=== PATIENT | male | born 1945 | race Caucasian/White ===

== ENCOUNTER → 2019-12-21 | Outpatient (CLI) | payer OTHER ==
[~2019-12-21] MED LIST: REGADENOSON 0.4 MG/5 ML PF SYG IVP ONE; REGADENOSON 0.4 MG/5 ML PF SYG IVP SCH
== END | disposition home or self-care (01) ==
LOC: SHCH 08:13
PROVIDERS: ATTEND Internal Medicine Cardiovascular Disease
DX: I25.10 Atherosclerotic heart disease of native coronary artery without angina pectoris (principal)
CPT/HCPCS: 78452; 93017; 96374; A9500 ×2; J2785

== ENCOUNTER 2023-02-22 06:19 | Day surgery (SDC) | payer OTHER ==
[2023-02-17 13:35] LABS: EOSINOPHILS % (AUTO) 5.5 % (0.0-8.0); HEMATOCRIT 45.2 % (42-54); LYMPHOCYTES % (AUTO) 17.8 % (21.0-51.0); MEAN CORPUSCULAR HEMOGLOBIN 31.9 pg (27.0-33.0); MEAN CORPUSCULAR HGB CONC 33.2 g/dL (32.0-36.0); MEAN CORPUSCULAR VOLUME 96.2 fL (79-99); MONOCYTES % (AUTO) 8.4 % (3.0-13.0); NEUTROPHILS % (AUTO) 67.1 % (40.0-77.0); PLATELET COUNT (AUTO) 323 K/uL (130-400); RED CELL DISTRIBUTION WIDTH 12.9 % (11.0-15.5); WHITE BLOOD COUNT (AUTO) 8.2 K/uL (4.8-10.8)
[2023-02-17 13:40] VITALS: BP 134/62; PULSE 66; RESP 16
[2023-02-17 13:41] LABS: CREATININE 0.8 mg/dL (0.5-1.5); POTASSIUM 4.4 mmol/L (3.5-5.1)
[2023-02-22] VITALS (18 sets, daily range): BP systolic 100–133; BP diastolic 53–70; PULSE 59–77; RESP 15–20
[~2023-02-22] VITALS: Ht 172.7 cm; Wt 80.1 kg
[~2023-02-22 06:19] MED LIST changes: +ATOR-2 PO; +LOSA50TA64 PO; +METO-408 PO; -REGADENOSON 0.4 MG/5 ML PF SYG IVP ONE; -REGADENOSON 0.4 MG/5 ML PF SYG IVP SCH; +ROPIVICAINE 250MG+KETOROLAC 15MG+EPINEPHRINE 0.3+CLONIDINE 80 IV PRN; +TAMS-1 PO; +TRANEXAMIC ACID 1,000 MG in 0.9%NACL 100ML 100 ML IV ONE; +VANCOMYCIN 1G VIAL TP ONE
[2023-02-22] MEDS ORDERED: LACTATED RINGERS 1000ML 1,000 ML IV ONE (06:27)
[2023-02-22] MEDS ORDERED: FENTANYL CITRATE PF 50 MCG/1 ML 2ML VIAL ONE (07:20)
[2023-02-22] MEDS ORDERED: MIDAZOLAM HCL 1 MG/ML 2ML VIAL ONE (07:20)
[2023-02-22] MEDS ORDERED: SUCCINYLCHOLINE CHLORIDE 20 MG/ML 10 ML VIAL ONE (07:20)
[2023-02-22] MEDS ORDERED: ROCURONIUM 10MG/1ML SYR 10 MG/ML ML ONE (07:20)
[2023-02-22] MEDS ORDERED: PROPOFOL 10 MG/ML 20ML VIAL IV ONE (07:20)
[2023-02-22] MEDS ORDERED: ROPIVACAINE 0.5% 5MG/ML 30ML IJ ONE (07:23)
[2023-02-22] MEDS: CEFAZOLIN SODIUM 2 GM VIAL ONE ×2 (07:43→08:10)
[2023-02-22] MEDS ORDERED: EPHEDRINE SULFATE 50 MG/ML AMPULE ONE (07:49)
[2023-02-22] MEDS ORDERED: ROPIVICAINE 250MG+KETOROLAC 15MG+EPINEPHRINE 0.3+CLONIDINE 80 IV PRN ×5 (08:00)
[2023-02-22] MEDS ORDERED: GLYCOPYRROLATE 1 MG/5 ML SYRINGE ONE ×2 (08:01→08:49)
[2023-02-22] MEDS ORDERED: NEOSTIGMINE 5MG/5ML SYR IV ONE (08:46)
[2023-02-22] MEDS ORDERED: HYDROCODONE/ACETAMINOPHEN 5/325 MG TAB PO PRN (09:30)
== END 2023-02-22 11:10 | disposition home or self-care (01) ==
LOC: DAH 06:19
PROVIDERS: ATTEND Orthopaedic Surgery
DX: M75.122 Complete rotator cuff tear or rupture of left shoulder, not specified as traumatic (principal); Z20.822 Contact with and (suspected) exposure to COVID-19; I10 Essential (primary) hypertension; E11.9 Type 2 diabetes mellitus without complications; E66.9 Obesity, unspecified; E78.5 Hyperlipidemia, unspecified; F17.200 Nicotine dependence, unspecified, uncomplicated; Z82.3 Family history of stroke; Z90.49 Acquired absence of other specified parts of digestive tract; Z98.890 Other specified postprocedural states; Z68.26 Body mass index [BMI] 26.0-26.9, adult
CPT/HCPCS: 87426; 80048; 85025; 36415; 29827; 29826; 64415; A6260; C1776; C1713 ×2; J7120 ×2; A4565; J3490 ×3; J2710; J0330; J0171; J2250; J2704; J2795 ×2; J1885; J0735; J0690; A6204; A4649; A4930; A5120; A4215; A4223; A4222; A4221; A4663; A4600; J3010; J3370